=== PATIENT | female | born 1985 | race Caucasian/White ===

== ENCOUNTER → 2017-09-22 10:40 | Outpatient (CLI) | payer OTHER, SELFPAY ==
[2017-09-22 11:35] LABS: Hemoglobin A1c 6.9 % (4.2-6.3)
[2017-09-22 11:41] LABS: Microalbumin,Random Urine 7.1 mg/L (NO RANGE EST.); Microalbumin:Creatinine Ratio 3.4 mg/g CRE (<30 mg/g CRE)
[2017-09-22 11:50] LABS: ALB/GLOB Ratio 0.8 RATIO (0.9-2.4); AST(SGOT) 24 U/L (15-37); Alanine Aminotransfer ALT/SGPT 27 U/L (13-56); Albumin, Serum 3.5 g/dL (3.2-5.0); Alkaline Phosphatase 106 U/L (45-117); Anion Gap 8 (5-15); BUN 12 mg/dL (7-18); BUN/Creat Ratio 12.4 RATIO (10-20); Calcium,Total 9.2 mg/dL (8.5-10.1); Chloride 103 mmol/L (98-107); Creatinine, Serum 0.96 mg/dL (0.55-1.02); EST Glomerular Filtration Rate 71 mL/min (>60); Est Glom Filt Rate - Afr Amer 87 mL/min (>60); Globulin 4.4 g/dL (2.2-4.2); Glucose 117 mg/dL (74-106); Potassium 3.9 mmol/L (3.5-5.1); Protein, Total 7.9 g/dL (6.4-8.2); Sodium Level 139 mmol/L (136-145); Thyroid Stim Hormone (TSH) 1.29 uIU/mL (0.358-3.74)
== END ==
PROVIDERS: Nurse Practitioner; Visit Provider Psychiatry & Neurology Neuromuscular Medicine
DX: E11.9 Type 2 diabetes mellitus without complications (principal)
CPT/HCPCS: 36415; 80053; 82043; 82570; 83036; 84443

== ENCOUNTER → 2018-01-11 18:49 | Outpatient (CLI) | payer OTHER, SELFPAY ==
[2018-01-14 16:11] LABS: HPV Reflexed? NOT INDICATED
== END ==
PROVIDERS: Visit Provider Obstetrics & Gynecology
DX: Z12.4 Encounter for screening for malignant neoplasm of cervix (principal)
CPT/HCPCS: 88175; G0145

== ENCOUNTER → 2018-02-16 10:14 | Outpatient (CLI) | payer OTHER, SELFPAY ==
[2018-02-16 11:22] LABS: Hemoglobin A1c 6.7 % (4.2-6.3)
[2018-02-16 11:31] LABS: ALB/GLOB Ratio 0.8 RATIO (0.9-2.4); AST(SGOT) 20 U/L (15-37); Alanine Aminotransfer ALT/SGPT 24 U/L (13-56); Albumin, Serum 3.2 g/dL (3.2-5.0); Alkaline Phosphatase 94 U/L (45-117); Anion Gap 8 (5-15); BUN 14 mg/dL (7-18); BUN/Creat Ratio 15.6 RATIO (10-20); Calcium,Total 9.1 mg/dL (8.5-10.1); Chloride 106 mmol/L (98-107); Cholesterol 163 mg/dL (200); EST Glomerular Filtration Rate 77 mL/min (>60); Est Glom Filt Rate - Afr Amer 94 mL/min (>60); Globulin 4.1 g/dL (2.2-4.2); Glucose 90 mg/dL (74-106); High Density Lipoprotein 82 mg/dL; Potassium 4.2 mmol/L (3.5-5.1); Protein, Total 7.3 g/dL (6.4-8.2); Sodium Level 142 mmol/L (136-145); Triglycerides 86 mg/dL; Very Low Density Lipoprotein 17 mg/dL (5-40)
== END ==
PROVIDERS: Visit Provider Nurse Practitioner
DX: E10.9 Type 1 diabetes mellitus without complications (principal)
CPT/HCPCS: 36415; 80053; 80061; 83036

== ENCOUNTER → 2018-06-24 07:22 | Outpatient (CLI) | payer OTHER, SELFPAY ==
[2018-05-04 13:56] VITALS: BMI 34.7
[2018-06-24 09:16] LABS: Microalbumin,Random Urine < 5.0 mg/L (NO RANGE EST.)
[2018-06-24 09:29] LABS: ALB/GLOB Ratio 0.8 RATIO (0.9-2.4); AST(SGOT) 21 U/L (15-37); Alanine Aminotransfer ALT/SGPT 24 U/L (13-56); Albumin, Serum 3.3 g/dL (3.2-5.0); Alkaline Phosphatase 98 U/L (45-117); Anion Gap 8 (5-15); BUN 12 mg/dL (7-18); Calcium,Total 8.8 mg/dL (8.5-10.1); Chloride 105 mmol/L (98-107); Cholesterol 160 mg/dL (200); Creatinine, Serum 0.92 mg/dL (0.55-1.02); EST Glomerular Filtration Rate 75 mL/min (>60); Est Glom Filt Rate - Afr Amer 91 mL/min (>60); Free T3 3.3 pg/mL (2.18-3.98); Globulin 4.1 g/dL (2.2-4.2); Glucose 137 mg/dL (74-106); High Density Lipoprotein 76 mg/dL; Potassium 3.4 mmol/L (3.5-5.1); Protein, Total 7.4 g/dL (6.4-8.2); Sodium Level 140 mmol/L (136-145); T4 Free Direct 1.06 ng/dL (0.76-1.46); Thyroid Stim Hormone (TSH) 3.63 uIU/mL (0.358-3.74); Triglycerides 76 mg/dL; Very Low Density Lipoprotein 15 mg/dL (5-40)
[2018-06-24 09:33] LABS: Hemoglobin A1c 7.1 % (4.2-6.3)
--- OUTSIDE RECORDS SUMMARY | 2018-08-28 19:45 | XMS RPT_ITS ---
:1985 Author Organization OHIP Support Name Relationship Address Phone THIAGOVASILIY Unavailable [address] + [place] [address] [employer] Unavailable [address] + [place] [address] VASILIY DAS Unavailable [address] + [place] [address] [employer] Unavailable [address] + [place] [address] VASILIY DAS Unavailable [address] + [place] [address] [employer] Unavailable [address] + [place] [address] VASILIY DAS Unavailable [address] + [place] [address] [employer] Unavailable [address] + [place] [address] VASILIY DAS Unavailable [address] + [place] [address] [employer] Unavailable [address] + [place] [address] VASILIY DAS Unavailable [address] + [place] [address] [employer] Unavailable [address] + [place] [address] VASILIY DAS Unavailable [address] + [place] [address] [employer] Unavailable [address] [place] [address] Care Team Providers Name Role Phone Renee Onofre MACHINIST MECHANIC-C Attending Unavailable Renee Onofre MACHINIST MECHANIC-C Referring Unavailable Primay Care Physicia, No Primary Care Unavailable Renee Onofre MACHINIST MECHANIC-C Attending Unavailable Gume Orozco Referring Unavailable Renee Onofre MACHINIST MECHANIC-C Attending Unavailable Primay Care Physicia, No Referring Unavailable Renee Onofre MACHINIST MECHANIC-C Attending Unavailable [place], Renee Abreu MACHINIST MECHANIC-C Referring Unavailable Primay Care Physicia, No Primary Care Unavailable Tereza Clemens Attending Unavailable Primay Care Physicia, No Primary Care Unavailable KingstonJudson Attending Unavailable Tye Onofreen Referring Unavailable Primay Care Physicia, No Primary Care Unavailable [place], Renee Abreu MACHINIST MECHANIC-C Attending Unavailable Gume Orozco Referring Unavailable Gume Orozco Primary Care Unavailable PROBLEMS PROBLEMS DATE TYPE CONDITION / CODE ATTENDING STATUS SOURCE 05/04/2018 Unknown E10.9 - Type 1 Sarayshawn Renee Abreu Active [place] diabetes mellitus MACHINIST MECHANIC-C [facility] complications / Repository E10.9(ICD-10) 09/22/2017 Unknown E11.9 - Type 2 Judson Onofre Active [place] diabetes mellitus [facility] without Hospital complications / Repository E11.9(ICD-10) PROCEDURES PROCEDURES No Procedure Records FoundRESULTS RESULTS MICROALB:CREAT Collected: 06/24/2018 Status: F [facility]26 AM [facility] REPOSITORY TYPE CODE TESTS RESULT OUT OF RANGE REFERENCE UNITS LAB L501.1200 NO RANGE EST. mg/dL 18.10 Normal UR CREAT LAB L502.0500 NO RANGE EST. mg/L < 5.0 Normal MICROALBUMI N,UR LAB L502.0600 <30 mg/g CRE mg/g CRE Test Normal not performed MALB:CREAT Performed By: #### L502.0250 #### [facility] [address] [place], [place], [id number] COMPREHENSIVE METABOLIC Collected: 06/24/2018 Status: F Source: GARY PROFIL 7:26 AM [facility] REPOSITORY TYPE CODE TESTS RESULT OUT OF RANGE REFERENCE UNITS LAB L501.0100 74-106 mg/dL High GLU 137 Result Comment: Fasting Glucose result greater than or equal to 126 mg/dL suggests DIABETES MELLITUS per A.D.A. criteria. Please note revised GLUCOSE reference range effective 2017. LAB L501.1000 7-18 mg/dL Normal BUN 12 LAB L501.1100 0.55-1.02 mg/dL Normal CREAT,SERUM 0.92 Result Comment: The validity of the calculated GFR AND GFRAA in patients over 70 years has not been determined. Clinical correlation is essential. LAB L501.1110 >60 mL/min Normal EST GFR 75 Result Comment: Non- GFR Calc LAB L501.1115 >60 mL/min Normal EST GFR - AA 91 Result Comment: GFR Calc LAB L501.1300 10-20 RATIO Normal BUN/CRE 13.0 LAB L501.1500 6.4-8.2 g/dL T Normal PROT 7.4 LAB L501.1800 3.2-5.0 g/dL Normal ALB 3.3 LAB L501.1950 2.2-4.2 g/dL Normal GLOB 4.1 LAB L501.2000 0.9-2.4 RATIO Low A/G 0.8 LAB L501.2200 8.5-10.1 mg/dL CA Normal 8.8 LAB L501.4100 15-37 U/L Normal AST 21 LAB L501.4305 45-117 U/L Normal ALK P 98 LAB L501.4405 13-56 U/L Normal ALT 24 LAB L501.4600 0.20-1.00 mg/dL T Normal BILI 0.40 LAB L501.5300 136-145 mmol/L NA Normal 140 LAB L501.5600 3.5-5.1 mmol/L Low K 3.4 LAB L501.5900 98-107 mmol/L CL Normal 105 LAB L501.6100 21.0-32.0 mmol/L Normal CO2 27.0 LAB L501.6200 5-15 Normal GAP 8 Performed By: #### L500.4050, L500.4100, L501.65595, L501.9520, L506.0400 #### [facility] [address] [place], [address] LIPID PROFILE Collected: 06/24/2018 Status: F Source: [place] 7:26 AM [facility] REPOSITORY TYPE CODE TESTS RESULT OUT OF RANGE REFERENCE UNITS LAB L501.4900 200 mg/dL Normal CHOL 160 Result Comment: <200 mg/dL Desirable 200-240 mg/dL Borderline >240 mg/dL High Risk LAB L501.5000 mg/dL Normal TRIG 76 Result Comment: The drugs N-Acetylcysteine and Metamizole may falsely depress this assay. Serum Triglycerides Reference Interval Normal <150 mg/dL Borderline high 150 - 199 mg/dL High 200 - 499 mg/dL Very High > or = 500 mg/dL LAB L501.6400 mg/dL Normal HDL 76 Result Comment: The drugs N-Acetylcysteine and Metamizole may falsely depress this assay. Reference Range HDL <40 mg/dL Low HDL Cholesterol HDL >or= 60 mg/dL High HDL Cholesterol LAB L501.6500 0-130 mg/dL Normal LDL 69 LAB L501.6600 5-40 mg/dL Normal VLDL 15 Performed By: #### L500.4050, L500.4100, L501.21118, L501.9520, L506.0400 #### [facility] [address] [place], [place], [address] FREE T3 Collected: 06/24/2018 Status: F Source: [place] 7:26 AM [facility] REPOSITORY TYPE CODE TESTS RESULT OUT OF RANGE REFERENCE UNITS LAB L501.27106 2.18-3.98 pg/mL Normal FREE T3 3.3 Performed By: #### L500.4050, L500.4100, L501.98285, L501.9520, L506.0400 #### [facility] [address] [place], [address] THYROID STIM HORMONE Collected: 06/24/2018 Status: F Source: [place] ([facility]) 7:26 AM [facility] REPOSITORY TYPE CODE TESTS RESULT OUT OF RANGE REFERENCE UNITS LAB L501.9520 0.358-3.74 uIU/mL Normal TSH 3.63 Performed By: #### L500.4050, L500.4100, L501.31803, L501.9520, L506.0400 #### [facility] [address] [place], [address] T4 FREE DIRECT Collected: 06/24/2018 Status: F Source: [place] 7:26 AM [facility] REPOSITORY TYPE CODE TESTS RESULT OUT OF RANGE REFERENCE UNITS LAB L506.0400 0.76-1.46 ng/dL Normal T4 FREE 1.06 DIRECT Performed By: #### L500.4050, L500.4100, L501.87885, L501.9520, L506.0400 #### [facility] [address] [place], [address] HEMOGLOBIN A1C Collected: 06/24/2018 Status: F Source: [place] 7:26 AM [facility] REPOSITORY TYPE CODE TESTS RESULT OUT OF RANGE REFERENCE UNITS LAB L501.9985 4.2-6.3 % High HGB A1C 7.1 Performed By: #### L501.9985 #### [facility] [address] [place], [address] ENDOCRINOLOGY VISIT Observed: 05/05/2018 Status: F Source: [facility] REPORT 1:16 PM [facility] REPOSITORY [facility] [address] [place] [address] OFFICE VISIT Date of Service: 05/04/18 MR#: [id number] Acct: [id number] Name: VALENCIA DAS Rep #: [id number] : 1985 Provider: Renee Onofre NP Age/Sex: 33/F Location: [facility] [place] Status: Signed HPI History of present illness HPI History of present illness Valencia Das is a 33 year old female who presents for diabetes type 1. Diagnosed at 3 years old.(1987) Continues on insulin pump therapy. Changes infusion site every 3 days. Denies any issues with skin irritation or infection. Reports checking BG consistently. Is wearing CGM Pump is downloaded in office. She denies excessive thirst, increased frequency of urination, chest pain or dyspnea. Follows a diabetic diet, Is compliant with medication and is tolerating without side effects. At time of visit: -Pt denies symptoms of hypertensive emergency (CP,SOB,IRIZARRY, or blurred vision) and hypotension(dizziness or lightheadedness) -Pt denies symptoms of hypoglycemia ( sweaty, confusion, anxiety, tremor, hunger, palpitations) and hyperglycemia ( polydipsia, polyuria) -Pt denies potential medication adverse effect. Hypoglycemia Aware of hypoglycemia: When awake Able to self treat low BG: Yes Frequent low Blood sugar: No Has supply of glucagon: Yes Time of Day Basal Rate 12m 1.35 6am 1.30 10am 1.25 5pm 1.35 I/C am 10 lunch 10 dinner 8.7 ISF 12m 35 6am 25 12n 35 9pm 40 SMBG 4-6 times daily Average 146 Exercise Is working out. Exam Const General: healthy appearing, comfortable Nutritional Appearance: well nourished Orientation: oriented x3 [facility] Head: normal to inspection, normocephalic Ears: hearing grossly normal bilaterally Mouth: oral mucosae normal, moist mucous membranes Teeth and gingiva: dentition normal Eyes General: appearance normal, both eyes and all related structures Eyelids: eyelids normal Conjunctivae: conjunctivae normal Sclera: sclerae normal Pupils: PERRL Resp Effort AND Inspection: normal respiratory effort, able to speak in complete sentences, symmetric chest movement Auscultation: Bilateral: Clear to Auscultation Cardio Rate: regular rate Rhythm: regular rhythm Heart Sounds: S1 normal, S2 normal GI Inspection: normal to inspection Auscultation: normal bowel sounds Palpation: soft Skin General: no rashes or lesions noted Wounds: no wounds Diabetic Foot Pulses: L dorsalis pedis pulse: normal, R dorsalis pedis pulse: normal Monofilament test: Left foot: normal, Right foot: normal Neuro General: oriented x3 Cognition: normal cognition Speech: speech normal Gait: normal gait Extrem General: normal to inspection, normal capillary refill Psych Appearance: well kempt Mental Status: mental status grossly normal Mood: congruent mood Affect: normal affect Speech and Movement: speech and movement normal Attitude: cooperative Thought Process: normal Thought Content: normal Judgment: judgment good Type: type 1, insulin-requiring Glucose control symptoms: Reports high post-meal glucose Weight and fatigue symptoms: Denies snoring Cardiopulmonary symptoms: Denies chest pain at rest, dyspnea on exertion, lightheadedness or myalgias GI symptoms: Denies constipation, diarrhea, nausea/dyspepsia or vomiting Skin and extremity symptoms: Denies tingling/numbness/burning Other symptoms: Denies blurry vision or change in vision Pertinent visit history: Denies recent visit to ER, recent hospital admission or recent 911 calls Intake Vital Signs05/04/18 Height 5 ft 2 in 05/04/18 Weight: 190 lb 4 oz 05/04/18 Body Mass Index (BMI) 34.7 05/04/18 Blood Pressure 118/83 H 05/04/18 Blood Pressure Location Lt popliteal 05/04/18 Blood Pressure Position Sitting Intake Visit Reasons: Diabetes follow-up Proof Load Mechanic Required: No Accompanied by: Self Allergies No Known Allergies Allergy (Unverified 05/04/18 13:53) Medications multivitamin,ib-[id number] tablet 1 tab PO QDAY 05/31/17 [History Confirmed 05/04/18] blood sugar diagnostic strips See Dose Instructions .ROUTE .MEDSUPPLY #20 ea 09/09/17 [History Confirmed 05/04/18] insulin pump syringe 1.8 mL See Dose Instructions .ROUTE .MEDSUPPLY #10 ea 09/09/17 [History Confirmed 05/04/18] transparent dressings 4 X 5 1/2 See Dose Instructions .ROUTE .MEDSUPPLY #10 ea 09/09/17 [History Confirmed 05/04/18] infusion set for insulin pump See Dose Instructions .ROUTE .MEDSUPPLY #1 ea 09/10/17 [History Confirmed 05/04/18] insulin glargine (U- 100) 100 unit/mL subcutaneous solution See Rx Instructions SC QDAY 09/10/17 [History Confirmed 05/04/18] cholecalciferol (vitamin D3) 10,000 unit tablet 10,000 unit PO QDAY 09/22/17 [History Confirmed 05/04/18] drospirenone 3 mg-ethinyl estradiol 0.02 mg tablet 1 tab PO QDAY 09/22/17 [History Confirmed 05/04/18] insulin lispro (U- 100) 100 unit/mL subcutaneous solution See Rx Instructions SC QDAY #30 ml 09/22/17 [Rx Confirmed 05/04/18] mecobalamin (vitamin B12) 5,000 mcg disintegrating tablet mcg PO 09/22/17 [History Confirmed 05/04/18] biotin 1 mg capsule 1 mg PO DAILY 05/04/18 [History Confirmed 05/04/18] glucagon (human recombinant) 1 mg solution for injection 1 mg IM ONCE #1 ea 05/04/18 [Rx Confirmed 05/04/18] lamotrigine 150 mg tablet 150 mg PO BID 05/04/18 [History Confirmed 05/04/18] flash glucose scanning reader See Dose Instructions .ROUTE .MEDSUPPLY #1 ea 05/05/18 [Rx Confirmed 05/05/18] flash glucose sensor kit See Dose Instructions .ROUTE .MEDSUPPLY #1 ea 05/05/18 [Rx Confirmed 05/05/18] Nurse's Note: blood sugars : low : 56 high : 380 [facility] Medical History Back pain (Acute) Chest pain (Acute) History of wisdom tooth extraction (Acute) Neck pain (Acute) Severe headache (Acute) Thyroid disease (Acute) Tiredness (Acute) Type 1 diabetes (Acute) Surgical History History of carpal tunnel release (Acute) Social History Smoking Status: Never smoker alcohol intake: current alcohol intake frequency: a few times a month ROS Const Constitutional: No anorexia, body ache, chills, fatigue, fever(s), frequent falls, decreased energy, malaise, night sweats, weakness, weight change, sleep problems, abnormal sleep pattern, change in appetite, other, headache(s), snoring or excessive sweating Eyes Eyes: No blurry vision, change in vision, double vision, discharge, dry eyes, bulging eyes, floaters, visual disturbances, eye pain, light sensitivity, spots in vision, tunnel vision or other ENT ENT: No abnormal hearing, ear pain, ear discharge, ear pressure, hearing loss, tinnitus, dizziness/vertigo, balance problems, nosebleed/epistaxis, nasal congestion, nasal obstruction, nose pain, sinus pressure, sinus pain, nasal discharge, post nasal drip, headache(s), facial pain, dental pain, dry mouth, bad breath, hoarseness, lip swelling, mouth lesions, mouth pain, sore throat, tongue swelling, throat swelling, other, difficulty swallowing or neck pain Resp Respiratory: No cough, change in phlegm color, chest congestion, excessive phlegm production, hemoptysis, pain on inspiration, shortness of breath, pain with cough, snoring, stridor, wheezing or other Cardio Cardiology: No chest pain at rest, chest pain with exertion, leg pain with exertion, excessive sweating, shortness of breath, dyspnea on exertion, generalized swelling, irregular heart rhythm, lightheadedness, orthopnea, radiating jaw, neck or arm pain, fast heart rate, slow heart rate, palpitations or other Gastro GI: No abdominal pain, belching, bloating, change in bowel habits, change in stool character, coffee ground emesis, constipation, cramping, diarrhea, heartburn, difficulty swallowing, feeling full early, excessive flatus, incontinent of stools, Vomiting blood/hematemesis, blood in stool, loose stools, Black,tarry stools, nausea/dyspepsia, pain with swallowing, vomiting or other Genitourinary-Female: No difficulty urinating, burning urination, painful urination, urinary incontinence, urinary frequency, urinary urgency, urinary hesitancy, urinary retention, blood in urine, Frequent nighttime urination/ nocturia, post void dribbling, suprapubic fullness, side pain, sexual problems, genital lesions, genital itching, hot flashes, abnormal periods, abnormal vaginal bleeding, absent period, painful periods, light periods, heavy periods, difficulty getting , painful intercourse, pelvic pain, vaginal dryness, vaginal odor, Vaginal Itching or other Musc Musculoskeletal: No abnormal walking, joint pain, back pain, deformity, joint swelling, limited range of motion, loss of height, muscle cramps, muscle weakness, decreased muscle mass, body aches, neck pain, numbness, radiating pain into limb, stiffness, tingling or other Skin Skin: No acne, hair loss, change in hair, nail changes, boil, change in skin color, dry skin, redness, excessive hair growth, yellowing of the skin, lesions, itching, rash, skin pain, skin ulcer, sores, skin swelling, wounds or other Breast Breast: No other Neuro Neurology: No frequent falls, weakness, visual disturbances, abnormal hearing, headache(s), abnormal walking, numbness or tingling Psych Psychiatric: No abnormal sleep pattern, No change in appetite Endo Endocrine: No fatigue, other or excessive sweating Aller/Imm Allergy/Immunologic: No lip swelling, tongue swelling, throat swelling, wheezing or itchy eyes Assessment AND Plan 1. Diabetes mellitus type 1, controlled, without complications E10.9 Plan A1c 6.7 Having some higher BG following meals. Is aware of low BG readings. No real issues with low BG readings. Will adjust I/C ratio. I feel she needs to trial higher basal in am on work days such as 6:30 am =1.35 as she does tend to have elevated BG during am on work days I/C ratio am =10 12 =9 5pm= 8.5 Patient Instructions Changes made as noted above Patient will call with any concerns. Labs in 3 months. Orders Orders: Medications New: glucagon (human recombinant) (Glucagon Emerge1 mg IM ONCE 1 ea 0RF use in case of severe ncy Kit (human-recomb)) hypoglycemia Discontinued: glucagon (human recombinant) (Glucagon Emergency Kit (human- recomb)) Disc1 mg IM ONCE ontinued Reason: Duplicate Order Plan Detail Other Medications New: Additional Comments 1. Please schedule follow up in 3 months. 2. Lab work one week before appointment. 3. Discussed importance of regular exercise and recommend starting or continuing a regular exercise program for good health. 4. The patient was encouraged to lose weight for good health 5. The importance of monitoring blood sugar regularly was reviewed. 6. The importance of monitoring the HBA1c level regularly was reviewed. 7. The importance of prper foot care and regularly checking feet to prevent sores and loss of limbs was reviewed. 8. The importance of keeping BP at or below 130/80 to prevent stroke, heart attacks, kidney failure, blindness was reviewed. Spent approximately 30 minutes with patient with over 50% of time spent in discussion and counseling regarding medication adjustment, symptoms and treatment of hypoglycemia, diet adherence, and checking BG before driving. Coding Level of Care Code Off vis,est,level 4 Diagnoses Diabetes mellitus type 1, controlled, without complications E10.9 05/05/18 1316 <Electronically signed by Renee VENCES> Date Renee VENCES Cosigner Signature: Date (if applicable) CC: HEMOGLOBIN A1C Collected: 02/16/2018 Status: F Source: GARY 10:17 AM [facility] REPOSITORY TYPE CODE TESTS RESULT OUT OF RANGE REFERENCE UNITS LAB L501.9985 4.2-6.3 % High HGB A1C 6.7 Performed By: #### L501.9985 #### [facility] [address] [place] [place], [address] COMPREHENSIVE METABOLIC Collected: 02/16/2018 Status: F Source: GARY TORRSE 10:17 AM [facility] REPOSITORY TYPE CODE TESTS RESULT OUT OF RANGE REFERENCE UNITS LAB L501.0100 74-106 mg/dL Normal GLU 90 Result Comment: Please note revised GLUCOSE reference range effective 2017. LAB L501.1000 7-18 mg/dL Normal BUN 14 LAB L501.1100 0.55-1.02 mg/dL Normal CREAT,SERUM 0.90 Result Comment: The validity of the calculated GFR AND GFRAA in patients over 70 years has not been determined. Clinical correlation is essential. LAB L501.1110 >60 mL/min Normal EST GFR 77 Result Comment: Non- GFR Calc LAB L501.1115 >60 mL/min Normal EST GFR - AA 94 Result Comment: GFR Calc LAB L501.1300 10-20 RATIO Normal BUN/CRE 15.6 LAB L501.1500 6.4-8.2 g/dL T Normal PROT 7.3 LAB L501.1800 3.2-5.0 g/dL Normal ALB 3.2 LAB L501.1950 2.2-4.2 g/dL Normal GLOB 4.1 LAB L501.2000 0.9-2.4 RATIO Low A/G 0.8 LAB L501.2200 8.5-10.1 mg/dL CA Normal 9.1 LAB L501.4100 15-37 U/L Normal AST 20 LAB L501.4305 45-117 U/L Normal ALK P 94 LAB L501.4405 13-56 U/L Normal ALT 24 LAB L501.4600 0.20-1.00 mg/dL T Normal BILI 0.40 LAB L501.5300 136-145 mmol/L NA Normal 142 LAB L501.5600 3.5-5.1 mmol/L K Normal 4.2 LAB L501.5900 98-107 mmol/L CL Normal 106 LAB L501.6100 21.0-32.0 mmol/L Normal CO2 28.0 LAB L501.6200 5-15 Normal GAP 8 Performed By: #### L500.4050, L500.4100 #### [facility] [address] [place], [address] LIPID PROFILE Collected: 02/16/2018 Status: F Source: [place] 10:17 AM [facility] REPOSITORY TYPE CODE TESTS RESULT OUT OF RANGE REFERENCE UNITS LAB L501.4900 200 mg/dL Normal CHOL 163 Result Comment: <200 mg/dL Desirable 200-240 mg/dL Borderline >240 mg/dL High Risk LAB L501.5000 mg/dL Normal TRIG 86 Result Comment: The drugs N-Acetylcysteine and Metamizole may falsely depress this assay. Serum Triglycerides Reference Interval Normal <150 mg/dL Borderline high 150 - 199 mg/dL High 200 - 499 mg/dL Very High > or = 500 mg/dL LAB L501.6400 mg/dL Normal HDL 82 Result Comment: The drugs N-Acetylcysteine and Metamizole may falsely depress this assay. Reference Range HDL <40 mg/dL Low HDL Cholesterol HDL >or= 60 mg/dL High HDL Cholesterol LAB L501.6500 0-130 mg/dL Normal LDL 64 LAB L501.6600 5-40 mg/dL Normal VLDL 17 Performed By: #### L500.4050, L500.4100 #### [facility] [address] [place], [address] ENDOCRINOLOGY VISIT Observed: 01/26/2018 Status: F Source: [place] REPORT 9:09 PM [facility] REPOSITORY [facility] [address] [place] [address] OFFICE VISIT Date of Service: 01/26/18 MR#: [id number] Acct: [id number] Name: VALENCIA DAS Rep #: [id number] : 1985 Provider: Renee Onofre NP Age/Sex: 32/F Location: [facility] [place] Status: Signed HPI History of present illness Valencia Das is a 32 year old female who presents for diabetes type 1. Diagnosed at 3 years old.(1987) Continues on insulin pump therapy. Changes infusion site every 3 days. Denies any issues with skin irritation or infection. Reports checking BG consistently. Is wearing CGM Pump is downloaded in office. She denies excessive thirst, increased frequency of urination, chest pain or dyspnea. Follows a diabetic diet, Is compliant with medication and is tolerating without side effects. At time of visit: -Pt denies symptoms of hypertensive emergency (CP,SOB,IRIZARRY, or blurred vision) and hypotension(dizziness or lightheadedness) -Pt denies symptoms of hypoglycemia ( sweaty, confusion, anxiety, tremor, hunger, palpitations) and hyperglycemia ( polydipsia, polyuria) -Pt denies potential medication adverse effect. Hypoglycemia Aware of hypoglycemia: When awake Able to self treat low BG: Yes Frequent low Blood sugar: No Has supply of glucagon: Yes Time of Day Basal Rate 12m 1.35 6am 1.35 10am 1.25 5pm 1.35 I/C am 10 lunch 8.5 9pm 8.8 ISF 12m 35 6am 25 12n 35 9pm 40 SMBG 4-6 times daily Average 155 Exercise Is working out. Wt remains down 11 lbs ROS Const Constitutional: No anorexia, body ache, chills, fatigue, fever(s), frequent falls, decreased energy, malaise, night sweats, weakness, weight change, sleep problems, abnormal sleep pattern, change in appetite, other, headache(s), snoring or excessive sweating Eyes Eyes: No blurry vision, change in vision, double vision, discharge, dry eyes, bulging eyes, floaters, visual disturbances, eye pain, light sensitivity, spots in vision, tunnel vision or other ENT ENT: no abnormal hearing, ear pain, ear discharge, ear pressure, hearing loss, tinnitus, dizziness/vertigo, balance problems, nosebleed/epistaxis, nasal congestion, nasal obstruction, nose pain, sinus pressure, sinus pain, nasal discharge, headache(s), facial pain, dental pain, dry mouth, bad breath, hoarseness, lip swelling, mouth lesions, mouth pain, sore throat, tongue swelling, throat swelling, other, difficulty swallowing or neck pain Resp Respiratory: neg chest congestion, hemoptysis, pain on inspiration, shortness of breath, pain with cough, snoring, stridor, wheezing or other Cardio Cardiology: No chest pain at rest, chest pain with exertion, leg pain with exertion, excessive sweating, shortness of breath, dyspnea on exertion, generalized swelling, irregular heart rhythm, lightheadedness, orthopnea, radiating jaw, neck or arm pain, fast heart rate, slow heart rate, palpitations or other Gastro GI: No abdominal pain, belching, bloating, change in bowel habits, change in stool character, coffee ground emesis, constipation, cramping, diarrhea, heartburn, difficulty swallowing, feeling full early, excessive flatus, incontinent of stools, Vomiting blood/hematemesis, blood in stool, loose stools, Black,tarry stools, nausea/dyspepsia, pain with swallowing, vomiting or other Genitourinary-Female: No difficulty urinating, burning urination, painful urination, urinary incontinence, urinary frequency, urinary urgency, urinary hesitancy, urinary retention, blood in urine, Frequent nighttime urination/ nocturia, post void dribbling, suprapubic fullness, side pain, sexual problems, genital lesions, genital itching, hot flashes, abnormal periods, abnormal vaginal bleeding, absent period, painful periods, light periods, heavy periods, difficulty getting , painful intercourse, pelvic pain, vaginal dryness, vaginal odor, Vaginal Itching or other Musc Musculoskeletal: No abnormal walking, joint pain, back pain, deformity, joint swelling, limited range of motion, loss of height, muscle cramps, muscle weakness, decreased muscle mass, body aches, neck pain, numbness, radiating pain into limb, stiffness, tingling or other Skin Skin: No acne, hair loss, change in hair, nail changes, boil, change in skin color, dry skin, redness, excessive hair growth, yellowing of the skin, lesions, itching, rash, skin pain, skin ulcer, sores, skin swelling, wounds or other Breast Breast: No other Neuro Neurology: No frequent falls, weakness, visual disturbances, abnormal hearing, headache(s), abnormal walking, numbness or tingling Psych Psychiatric: No abnormal sleep pattern, No change in appetite Endo Endocrine: No fatigue, other or excessive sweating Aller/Imm Allergy/Immunologic: No lip swelling, tongue swelling, throat swelling, wheezing or itchy eyes Exam Const General: healthy appearing, comfortable Nutritional Appearance: well nourished Orientation: oriented x3 [facility] Head: normal to inspection, normocephalic Ears: hearing grossly normal bilaterally Mouth: oral mucosae normal, moist mucous membranes Teeth and gingiva: dentition normal Eyes General: appearance normal, both eyes and all related structures Eyelids: eyelids normal Conjunctivae: conjunctivae normal Sclera: sclerae normal Pupils: PERRL Resp Effort AND Inspection: normal respiratory effort, able to speak in complete sentences, symmetric chest movement Auscultation: Bilateral: Clear to Auscultation Cardio Rate: regular rate Rhythm: regular rhythm Heart Sounds: S1 normal, S2 normal GI Inspection: normal to inspection Auscultation: normal bowel sounds Palpation: soft Skin General: no rashes or lesions noted Wounds: no wounds Diabetic Foot Pulses: L dorsalis pedis pulse: normal, R dorsalis pedis pulse: normal Monofilament test: Left foot: normal, Right foot: normal Neuro General: oriented x3 Cognition: normal cognition Speech: speech normal Gait: normal gait Extrem General: normal to inspection, normal capillary refill Psych Appearance: well kempt Mental Status: mental status grossly normal Mood: congruent mood Affect: normal affect Speech and Movement: speech and movement normal Attitude: cooperative Thought Process: normal Thought Content: normal Judgment: judgment good Type: type 1 Weight and fatigue symptoms: Denies weight loss or wakes up feeling tired Cardiopulmonary symptoms: Denies chest pain with activity or dyspnea on exertion Skin and extremity symptoms: Denies recurrent infections, tingling/numbness/burning or foot ulcers Other symptoms: Denies recurrent infections Pertinent visit history: Denies recent visit to ER, recent hospital admission or recent DKA Intake Vital Signs01/26/18 Height 5 ft 2 in 01/26/18 Weight: 180 lb 01/26/18 Body Mass Index (BMI) 32.9 Intake Visit Reasons: Diabetes follow-up Proof Load Mechanic Required: No Accompanied by: Self Is patient in pain?: No Allergies No Known Allergies Allergy (Unverified 01/26/18 15:02) Medications multivitamin,ex-clsm-bwhznwdd tablet 1 tab PO QDAY 05/31/17 [History Confirmed 01/26/18] blood sugar diagnostic strips See Dose Instructions .ROUTE .MEDSUPPLY #20 ea 09/09/17 [History Confirmed 01/26/18] insulin pump syringe 1.8 mL See Dose Instructions .ROUTE .MEDSUPPLY #10 ea 09/09/17 [History Confirmed 01/26/18] transparent dressings 4 X 5 1/2 See Dose Instructions .ROUTE .MEDSUPPLY #10 ea 09/09/17 [History Confirmed 01/26/18] blood sugar diagnostic strips See Dose Instructions .ROUTE .MEDSUPPLY #20 ea 09/10/17 [History Confirmed 01/26/18] glucagon (human recombinant) 1 mg injection kit 1 mg IM ONCE 09/10/17 [History Confirmed 01/26/18] infusion set for insulin pump See Dose Instructions .ROUTE .MEDSUPPLY #1 ea 09/10/17 [History Confirmed 01/26/18] insulin glargine (U-100) 100 unit/mL subcutaneous solution See Label Instructions SC QDAY 09/10/17 [History Confirmed 01/26/18] cholecalciferol (vitamin D3) 10,000 unit tablet 10,000 unit PO QDAY 09/22/17 [History Confirmed 01/26/18] drospirenone-ethinyl estradiol 3 mg-0.02 mg (24) tablet 1 tab PO QDAY 09/22/17 [History Confirmed 01/26/18] insulin lispro (U-100) 100 unit/mL subcutaneous solution See Label Instructions SC QDAY #30 ml 09/22/17 [Rx Confirmed 01/26/18] lamotrigine 200 mg tablet 300 mg PO QDAY tab 09/22/17 [History Confirmed 01/26/18] mecobalamin (vitamin B12) 5,000 mcg disintegrating tablet mcg PO 09/22/17 [History Confirmed 01/26/18] Is last menstrual period known: No Post menopausal: No Patient : No Nurse's Note: blood sugars : low : high : PFSH Medical History Back pain (Acute) Chest pain (Acute) History of carpal tunnel release (Acute) Neck pain (Acute) Severe headache (Acute) Thyroid disease (Acute) Tiredness (Acute) Type 1 diabetes (Acute) Surgical History History of wisdom tooth extraction (Acute) Social History Smoking Status: Never smoker alcohol intake: current alcohol intake frequency: a few times a month ROS Cardio Cardiology: No dyspnea on exertion Assessment AND Plan 1. Diabetes mellitus type 1, controlled, without complications E10.9 Plan Needs basal adjustment with new ob 6:30am 1.30 12n 1.25 Monitor Bg carefully Labs as ordered. No further change. BP in range Orders Orders: Plan Detail Additional Comments 1. Please schedule follow up in 3 months. 2. Lab work one week before appointment. 3. Discussed importance of regular exercise and recommend starting or continuing a regular exercise program for good health. 4. The patient was encouraged to lose weight for good health 5. The importance of monitoring blood sugar regularly was reviewed. 6. The importance of monitoring the HBA1c level regularly was reviewed. 7. The importance of prper foot care and regularly checking feet to prevent sores and loss of limbs was reviewed. 8. The importance of keeping BP at or below 130/80 to prevent stroke, heart attacks, kidney failure, blindness was reviewed. Spent approximately 30 minutes with patient with over 50% of time spent in discussion and counseling regarding medication adjustment, symptoms and treatment of hypoglycemia, diet adherence, and checking BG before driving. Coding Level of Care Code Off vis,est,level 3 Diagnoses Diabetes mellitus type 1, controlled, without complications E10.9 01/26/182108 <Electronically signed by Renee VENCES> Date Renee VENCES Cosigner Signature: Date (if applicable) CC: PAP I-G W/RFX HRHPV Collected: 01/11/2018 Status: F Source: GARY 3:30 PM [facility] REPOSITORY Order Comment: CYTOLOGY INFORMATION: - CLINICAL INFORMATION: - DATE LMP/MENOPAUSE: 2015 LMP - COLLECTION VIAL: Thin Prep Vial - TRANSLATOR/INTERPRETER SOURCE: CERVICAL/ENDOCERVICAL - COLLECTION TECHNIQUE: BRUSH/SPATULA Specimen Comment: [id number] Specimen Comment: No. of containers..01 ThinPrep Vial TYPE CODE TESTS RESULT OUT OF RANGE REFERENCE UNITS LAB L7400.0800 . Normal DIAGN Comment Result Comment: NEGATIVE FOR INTRAEPITHELIAL LESION AND MALIGNANCY. LAB L7400.0900 . Normal ADEQ Comment Result Comment: Satisfactory for evaluation. Endocervical and/or squamous metaplastic cells (endocervical component) are present. LAB L7400.1400 . Normal PERFORM Comment Result Comment: Tommy Das, Final Inspector Balance Wheel (ASCP) LAB L7400.2575 . Normal TEST METHOD Comment Result Comment: This liquid based ThinPrep(R) pap test was screened with the use of an image guided system. LAB L7400.2600 . Normal . COMM LAB L7400.2700 . Normal PAPSMR Comment Result Comment: The Pap smear is a screening test designed to aid in the detection of premalignant and malignant conditions of the uterine cervix. It is not a diagnostic procedure and should not be used as the sole means of detecting cervical cancer. Both false-positive and false-negative reports do occur. LAB L7400.2800 . Normal HPV RFLX Comment Result Comment: The HPV DNA reflex criteria were not met with this specimen result therefore, no HPV testing was performed. Performed at: [facility] [employer] [id number] Unit Control Worker: Dariana Hobson MD, Phone: [phone] Performed By: #### L7400.0350 #### [facility] (refer to report for specific site) refer to report for address and phone number ENDOCRINOLOGY VISIT Observed: 09/22/2017 Status: F Source: [place] REPORT 3:34 PM [facility] REPOSITORY [facility] [address] [place] [address]. [address] [place] [address] OFFICE VISIT Date of Service: 09/22/17 MR#: [id number] Acct: [id number] Name: VALENCIA DAS Rep #: [id number] : 1985 Provider: Renee Onofre NP Age/Sex: 32/F Location: [facility] [place] Status: Signed HPI History of present illness Valencia Das is a 32 year old female who presents for diabetes type 1. Diagnosed at 3 years old.(1987) Continues on insulin pump therapy. Changes infusion site every 3 days. Denies any issues with skin irritation or infection. Reports checking BG consistently. Is wearing CGM Pump is downloaded in office. She denies excessive thirst, increased frequency of urination, chest pain or dyspnea. Follows a diabetic diet, Is compliant with medication and is tolerating without side effects. At time of visit: -Pt denies symptoms of hypertensive emergency (CP,SOB,IRIZARRY, or blurred vision) and hypotension(dizziness or lightheadedness) -Pt denies symptoms of hypoglycemia ( sweaty, confusion, anxiety, tremor, hunger, palpitations) and hyperglycemia ( polydipsia, polyuria) -Pt denies potential medication adverse effect. Hypoglycemia Aware of hypoglycemia: When awake Able to self treat low BG: Yes Frequent low Blood sugar: No Has supply of glucagon: Yes Time of Day Basal Rate 12m 1.35 10am 1.25 5pm 1.35 I/C am 10 lunch 8.5 9pm 8.8 ISF 12m 35 6am 25 12n 35 9pm 40 SMBG 4-6 times daily Average 140 Exercise Is working out. Lost 14 lbs. Type: type 1 Glucose control symptoms: Reports high post-meal glucose and nocturnal hypoglycemia Weight and fatigue symptoms: Reports weight loss; denies snoring Cardiopulmonary symptoms: Denies chest pain at rest, dyspnea on exertion, lightheadedness or myalgias GI symptoms: Denies constipation, diarrhea, nausea/dyspepsia or vomiting Other symptoms: Denies blurry vision or change in vision Self monitoring: Yes Dietary compliance: Diabetes: good Diabetes education in past year: Yes Glucose testing: demonstrates correct use of meter, understands testing schedule Sick day education - understands ketone testing: Yes Physical activity: regular Exam Const General: healthy appearing, comfortable Nutritional Appearance: well nourished Orientation: oriented x3 HENMT Head: normal to inspection, normocephalic Ears: hearing grossly normal bilaterally Mouth: oral mucosae normal, moist mucous membranes Teeth and gingiva: dentition normal Eyes General: appearance normal, both eyes and all related structures Eyelids: eyelids normal Conjunctivae: conjunctivae normal Sclera: sclerae normal Pupils: PERRL Resp Effort AND Inspection: normal respiratory effort, able to speak in complete sentences, symmetric chest movement Auscultation: Bilateral: Clear to Auscultation Cardio Rate: regular rate Rhythm: regular rhythm Heart Sounds: S1 normal, S2 normal GI Inspection: normal to inspection Auscultation: normal bowel sounds Palpation: soft Skin General: no rashes or lesions noted Wounds: no wounds Diabetic Foot Pulses: L dorsalis pedis pulse: normal, R dorsalis pedis pulse: normal Monofilament test: Left foot: normal, Right foot: normal Neuro General: oriented x3 Cognition: normal cognition Speech: speech normal Gait: normal gait Extrem General: normal to inspection, normal capillary refill Psych Appearance: well kempt Mental Status: mental status grossly normal Mood: congruent mood Affect: normal affect Speech and Movement: speech and movement normal Attitude: cooperative Thought Process: normal Thought Content: normal Judgment: judgment good Intake Vital Signs09/22/17 Height 5 ft 3 in 09/22/17 Weight: 181 lb 09/22/17 Body Mass Index (BMI) 32.1 09/22/17 Blood Pressure 129/78 09/22/17 Blood Pressure Location Lt popliteal 09/22/17 Blood Pressure Position Sitting Intake Visit Reasons: Diabetes follow-up Proof Load Mechanic Required: No Accompanied by: Self Is patient in pain?: No Allergies No Known Allergies Allergy (Unverified 09/22/17 09:42) Medications multivitamin,gk-snhk-bjkvpehr tablet 1 tab PO QDAY 05/31/17 [History Confirmed 09/22/17] blood sugar diagnostic strips See Dose Instructions .ROUTE .MEDSUPPLY #20 ea 09/09/17 [History Confirmed 09/22/17] insulin pump syringe 1.8 mL See Dose Instructions .ROUTE .MEDSUPPLY #10 ea 09/09/17 [History Confirmed 09/22/17] transparent dressings 4 X 5 1/2 See Dose Instructions .ROUTE .MEDSUPPLY #10 ea 09/09/17 [History Confirmed 09/22/17] blood sugar diagnostic strips See Dose Instructions .ROUTE .MEDSUPPLY #20 ea 09/10/17 [History Confirmed 09/22/17] glucagon (human recombinant) 1 mg injection kit 1 mg IM ONCE 09/10/17 [History Confirmed 09/22/17] infusion set for insulin pump See Dose Instructions .ROUTE .MEDSUPPLY #1 ea 09/10/17 [History Confirmed 09/22/17] insulin glargine (U-100) 100 unit/mL subcutaneous solution See Label Instructions SC QDAY 09/10/17 [History Confirmed 09/22/17] cholecalciferol (vitamin D3) 10,000 unit tablet 10,000 unit PO QDAY 09/22/17 [History Confirmed 09/22/17] drospirenone-ethinyl estradiol 3 mg-0.02 mg (24) tablet 1 tab PO QDAY 09/22/17 [History Confirmed 09/22/17] insulin lispro (U-100) 100 unit/mL subcutaneous solution See Label Instructions SC QDAY #30 ml 09/22/17 [Rx Confirmed 09/22/17] lamotrigine 200 mg tablet 300 mg PO QDAY tab 09/22/17 [History Confirmed 09/22/17] mecobalamin (vitamin B12) 5,000 mcg disintegrating tablet mcg PO 09/22/17 [History Confirmed 09/22/17] Is last menstrual period known: No Post menopausal: No Patient : No Nurse's Note: blood sugars : low : 38 high : 414 checks BG 4 x qd Paradigm 551 pump PFSH Medical History Back pain (Acute) Chest pain (Acute) History of carpal tunnel release (Acute) Neck pain (Acute) Severe headache (Acute) Thyroid disease (Acute) Tiredness (Acute) Type 1 diabetes (Acute) Surgical History History of wisdom tooth extraction (Acute) Social History Smoking Status: Never smoker alcohol intake: current alcohol intake frequency: a few times a month ROS Const Constitutional: No anorexia, body ache, chills, fatigue, fever(s), frequent falls, decreased energy, malaise, night sweats, weakness, weight change, sleep problems, abnormal sleep pattern, change in appetite, other, headache(s), snoring or excessive sweating Eyes Eyes: No blurry vision, change in vision, double vision, discharge, dry eyes, bulging eyes, floaters, visual disturbances, eye pain, light sensitivity, spots in vision, tunnel vision or other ENT ENT: Positive for post nasal drip; no abnormal hearing, ear pain, ear discharge, ear pressure, hearing loss, tinnitus, dizziness/vertigo, balance problems, nosebleed/epistaxis, nasal congestion, nasal obstruction, nose pain, sinus pressure, sinus pain, nasal discharge, headache(s), facial pain, dental pain, dry mouth, bad breath, hoarseness, lip swelling, mouth lesions, mouth pain, sore throat, tongue swelling, throat swelling, other, difficulty swallowing or neck pain Resp Respiratory: Positive for cough and excessive phlegm production; no change in phlegm color, chest congestion, hemoptysis, pain on inspiration, shortness of breath, pain with cough, snoring, stridor, wheezing or other Cardio Cardiology: No chest pain at rest, chest pain with exertion, leg pain with exertion, excessive sweating, shortness of breath, dyspnea on exertion, generalized swelling, irregular heart rhythm, lightheadedness, orthopnea, radiating jaw, neck or arm pain, fast heart rate, slow heart rate, palpitations or other Gastro GI: No abdominal pain, belching, bloating, change in bowel habits, change in stool character, coffee ground emesis, constipation, cramping, diarrhea, heartburn, difficulty swallowing, feeling full early, excessive flatus, incontinent of stools, Vomiting blood/hematemesis, blood in stool, loose stools, Black,tarry stools, nausea/dyspepsia, pain with swallowing, vomiting or other Genitourinary-Female: No difficulty urinating, burning urination, painful urination, urinary incontinence, urinary frequency, urinary urgency, urinary hesitancy, urinary retention, blood in urine, Frequent nighttime urination/ nocturia, post void dribbling, suprapubic fullness, side pain, sexual problems, genital lesions, genital itching, hot flashes, abnormal periods, abnormal vaginal bleeding, absent period, painful periods, light periods, heavy periods, difficulty getting , painful intercourse, pelvic pain, vaginal dryness, vaginal odor, Vaginal Itching or other Musc Musculoskeletal: No abnormal walking, joint pain, back pain, deformity, joint swelling, limited range of motion, loss of height, muscle cramps, muscle weakness, decreased muscle mass, body aches, neck pain, numbness, radiating pain into limb, stiffness, tingling or other Skin Skin: No acne, hair loss, change in hair, nail changes, boil, change in skin color, dry skin, redness, excessive hair growth, yellowing of the skin, lesions, itching, rash, skin pain, skin ulcer, sores, skin swelling, wounds or other Breast Breast: No other Neuro Neurology: No frequent falls, weakness, visual disturbances, abnormal hearing, headache(s), abnormal walking, numbness or tingling Psych Psychiatric: No abnormal sleep pattern, No change in appetite Endo Endocrine: No fatigue, other or excessive sweating Aller/Imm Allergy/Immunologic: No lip swelling, tongue swelling, throat swelling, wheezing or itchy eyes Assessment AND Plan 1. Diabetes mellitus type 1, controlled, without complications E10.9 Plan Reduce evening meal coverage to I/C of 8.8 Change correction sensitivity to 55 near bedtime to avoid overcorrecting Lab today Medications New: Plan Detail Other Orders Orders: Additional Comments 1. Please schedule follow up in 3 months. 2. Lab work one week before appointment. 3. Discussed importance of regular exercise and recommend starting or continuing a regular exercise program for good health. 4. The patient was encouraged to lose weight for good health 5. The importance of monitoring blood sugar regularly was reviewed. 6. The importance of monitoring the HBA1c level regularly was reviewed. 7. The importance of prper foot care and regularly checking feet to prevent sores and loss of limbs was reviewed. 8. The importance of keeping BP at or below 130/80 to prevent stroke, heart attacks, kidney failure, blindness was reviewed. Spent approximately 30 minutes with patient with over 50% of time spent in discussion and counseling regarding medication adjustment, symptoms and treatment of hypoglycemia, diet adherence, and checking BG before driving. Coding Level of Care Code Off vis,est,level 4 Diagnoses Diabetes mellitus type 1, controlled, without complications E10.9 Time Spent (min) 30 09/22/17 1534 <Electronically signed by Renee VENCES> Date Renee VENCES Cosigner Signature: Date (if applicable) CC: HEMOGLOBIN A1C Collected: 09/22/2017 Status: F Source: GARY 10:46 AM [facility] REPOSITORY TYPE CODE TESTS RESULT OUT OF RANGE REFERENCE UNITS LAB L501.9985 4.2-6.3 % High HGB A1C 6.9 Performed By: #### L501.9985 #### [facility] [place], [address] MICROALB:CREAT Collected: 09/22/2017 Status: F Source: GARY RATIO,RANDOM UR 10:46 AM [facility] REPOSITORY TYPE CODE TESTS RESULT OUT OF RANGE REFERENCE UNITS LAB L501.1200 NO RANGE EST. mg/dL Normal UR CREAT 208.00 LAB L502.0500 NO RANGE EST. mg/L Normal 7.1 MICROALBUMIN ,UR LAB L502.0600 <30 mg/g CRE mg/g CRE Normal 3.4 MALB:CREAT Performed By: #### L502.0250 #### [facility] [address] [place], [address] COMPREHENSIVE METABOLIC Collected: 09/22/2017 Status: F Source: GARY PROFIL 10:46 AM [facility] REPOSITORY TYPE CODE TESTS RESULT OUT OF RANGE REFERENCE UNITS LAB L501.0100 74-106 mg/dL High GLU 117 Result Comment: Fasting Glucose result from 100 to 125 mg/dL suggests IMPAIRED HOMEOSTASIS per A.D.A. criteria. Please note revised GLUCOSE reference range effective 2017. LAB L501.1000 7-18 mg/dL Normal BUN 12 LAB L501.1100 0.55-1.02 mg/dL Normal CREAT,SERUM 0.96 Result Comment: The validity of the calculated GFR AND GFRAA in patients over 70 years has not been determined. Clinical correlation is essential. LAB L501.1110 >60 mL/min Normal EST GFR 71 Result Comment: Non- GFR Calc LAB L501.1115 >60 mL/min Normal EST GFR - AA 87 Result Comment: GFR Calc LAB L501.1300 10-20 RATIO Normal BUN/CRE 12.4 LAB L501.1500 6.4-8.2 g/dL T Normal PROT 7.9 LAB L501.1800 3.2-5.0 g/dL Normal ALB 3.5 LAB L501.1950 2.2-4.2 g/dL High GLOB 4.4 LAB L501.2000 0.9-2.4 RATIO Low A/G 0.8 LAB L501.2200 8.5-10.1 mg/dL CA Normal 9.2 LAB L501.4100 15-37 U/L Normal AST 24 LAB L501.4305 45-117 U/L Normal ALK P 106 LAB L501.4405 13-56 U/L Normal ALT 27 LAB L501.4600 0.20-1.00 mg/dL T Normal BILI 0.30 LAB L501.5300 136-145 mmol/L NA Normal 139 LAB L501.5600 3.5-5.1 mmol/L K Normal 3.9 LAB L501.5900 98-107 mmol/L CL Normal 103 LAB L501.6100 21.0-32.0 mmol/L Normal CO2 28.0 LAB L501.6200 5-15 Normal GAP 8 Performed By: #### L500.4050, L501.9520 #### [facility] [address] [place], [address] THYROID STIM HORMONE Collected: 09/22/2017 Status: F Source: GARY (TSH) 10:46 AM [facility] REPOSITORY TYPE CODE TESTS RESULT OUT OF RANGE REFERENCE UNITS LAB L501.9520 0.358-3.74 uIU/mL Normal TSH 1.29 Performed By: #### L500.4050, L501.9520 #### [facility] [address] [place], [address] ALLERGIES ALLERGIES DATE TYPE / CODE NAME / CODE REACTION SEVERITY SOURCE 05/04/2018 Drug No Known Unknown [facility] Allergy/4160 Allergies/F00 [facility] [address](SNOMED [id number](RXNOR Repository CT) M) ENCOUNTERS ENCOUNTERS ADMIT/DISCHARGE ACCOUNT ADMITTING ENCOUNTER LOCATION SOURCE NUMBER CLASS 06/24/2018 [id number] Ambulatory [place] 4 [facility] ing:LAB Repository 05/04/2018/ [id number] Ambulatory BMS[facility]:B [place] 8 0 [facility] Repository 02/16/2018 [id number] Ambulatory [place] 9 [facility] ing:LAB Repository 01/26/2018/ [id number] Ambulatory BMSBuilding:B [place] 8 0 [facility] Repository 01/11/2018 [id number] Ambulatory [place] 1 [facility] ing:LABSPEC Repository 09/22/2017 [id number] Ambulatory [place] 1 [facility] ing:LAB Repository 09/22/2017/ [id number] Ambulatory BMSBuilding:B [place] 8 1 [facility] Repository PAYERS PAYERS ENCOUNTER GUARANTOR PAYER SUBSCRIBER SOURCE 06/24/2018 VALENCIA [id number] Insurance:MEDICAL MILLERDOB[facility] [id number] Number: Repository [address]Osa: 330 [id number] (HP) Date:[id number] [address] [address]PH: 06/24/2018 Secondary NOT GIVENUNK [place] Insurance:SELF PAY [facility] Number: Effective Repository Date:2018-06-24 05/04/2018 VALENCIA [id number] Insurance:MEDICAL MillerDOB: [facility] [id number]: Repository [id number]: 330 [id number] [phone] () Date:[id number] [address]SF: 05/04/2018 Secondary NOT GIVENUNK [place] Insurance:SELF PAY [facility] Number: Effective Repository Date:2018-05-04 02/16/2018 VALENCIA [id number] Insurance:MEDICAL MillerDOB: [facility] [id number] Number: Repository [id number]: 330 [id number] [phone] Date:[id number] [address]XZ: 02/16/2018 Secondary NOT GIVENUNK [place] Insurance:SELF PAY [facility] Number: Effective Repository Date:2018-02-16 01/26/2018 VALENCIA [id number] Insurance:MEDICAL MillerDOB: [facility] [id number] Number: Repository [id number]: 330 [id number] [phone] (HP) Date:5325-64-56PD [address] [address]UC: 01/26/2018 Secondary NOT GIVENUNK [place] Insurance:SELF PAY [facility] Number: Effective Repository Date:2018-01-26 01/11/2018 VALENCIA [place] [id number] Insurance:MEDICAL MillerDOB: [facility] [id number] Number: Repository [id number]: 330 [id number] [phone] (HP) Date:4022-51-15TY [address] [place] [address]UB: 01/11/2018 Secondary NOT GIVENUNK [place] Insurance:SELF PAY [facility] Number: Effective Repository Date:2018-01-11 09/22/2017 VALENCIA [place] [id number] Insurance:MEDICAL MillerDOB: [facility] [id number] Number: Repository [id number]: 330 [id number] [phone] (HP) Date:7404-57-02GU [address] [address]KX: 09/22/2017 Secondary NOT GIVENUNK [place] Insurance:SELF PAY [facility] Number: Effective Repository Date:2017-09-22 09/22/2017 VALENCIA [place] Primary [place] [id number] Insurance:MEDICAL MillerDOB: [facility] [id number] Number: Repository [id number]: 330 [id number] [phone] (HP) Date:0108-88-71FH [address] [address]KU: 09/22/2017 Secondary NOT GIVENUNK [place] Insurance:SELF PAY [facility]: Effective Repository Date:2017-09-22
== END ==
PROVIDERS: Referring Provider Nurse Practitioner; Visit Provider Nurse Practitioner
DX: E10.9 Type 1 diabetes mellitus without complications (principal)
CPT/HCPCS: 36415; 80053; 80061; 82043; 82570; 83036; 84439; 84443; 84481

== ENCOUNTER → 2018-08-17 13:54 | Outpatient (CLI) | payer OTHER, SELFPAY ==
[2018-08-10 14:29] VITALS: BMI 34.7
--- NOTE | 2018-08-17 13:56 | US_ITS ---
STUDY: THYROID ULTRASOUND REASON FOR EXAM: Female, 33 years old. Nodules TECHNIQUE: Ultrasound evaluation of the thyroid was performed with real-time and static bass-scale imaging. COMPARISON: None. FINDINGS: RIGHT LOBE: The right lobe of the thyroid gland measures 4.8 x 1.9 x 1.3 cm. There is a homogeneous echotexture. Stable round isoechoic nodule in the central lobe measuring 11 x 9 x 9 mm. No echogenic foci. Peripheral vascularity is present. LEFT LOBE: The left lobe of the thyroid gland measures 4.5 x 1.8 x 1.2 cm. There is a homogeneous echotexture. Stable inferior thyroid nodule, ovoid well-defined, 7 x 6 x 4 mm without echogenic foci with minimal vascularity. ISTHMUS: The isthmus measures 5 mm . Stable hypoechoic well-defined nodule in the left side of the isthmus measuring 8 x 7 x 4 mm. No suspicious secondary features. US/Thyroid IMPRESSION: Stable thyroid nodules. Electronically Signed: Camacho Olguin MD at 15:21 EDT Tel , Service support ,
== END ==
PROVIDERS: Family Provider Nurse Practitioner Family; PCP Nurse Practitioner Family; Referring Provider Nurse Practitioner; Visit Provider Nurse Practitioner
DX: E10.9 Type 1 diabetes mellitus without complications (principal)
CPT/HCPCS: 76536

== ENCOUNTER → 2019-10-25 12:49 | Outpatient (CLI) | payer OTHER, SELFPAY ==
[2018-08-10 14:29] VITALS: BMI 34.7
[2019-10-25 15:06] LABS: ALB/GLOB Ratio 0.7 RATIO (0.9-2.4); AST(SGOT) 16 U/L (15-37); Alanine Aminotransfer ALT/SGPT 16 U/L (13-56); Albumin, Serum 3.1 g/dL (3.2-5.0); Alkaline Phosphatase 132 U/L (45-117); Anion Gap 6 (5-15); BUN 8 mg/dL (7-18); Calcium,Total 8.9 mg/dL (8.5-10.1); Chloride 104 mmol/L (98-107); Cholesterol 124 mg/dL (200); Creatinine, Serum 0.89 mg/dL (0.55-1.02); EST Glomerular Filtration Rate 78 mL/min (>60); Est Glom Filt Rate - Afr Amer 94 mL/min (>60); Globulin 4.2 g/dL (2.2-4.2); Glucose 126 mg/dL (74-106); High Density Lipoprotein 75 mg/dL; Potassium 4.1 mmol/L (3.5-5.1); Protein, Total 7.3 g/dL (6.4-8.2); Sodium Level 137 mmol/L (136-145); T4 Free Direct 0.98 ng/dL (0.76-1.46); Thyroid Stim Hormone (TSH) 2.26 uIU/mL (0.358-3.74); Triglycerides 105 mg/dL; Very Low Density Lipoprotein 21 mg/dL (5-40)
[2019-10-25 15:08] LABS: Hemoglobin A1c 6.5 % (3.8-5.6)
== END ==
PROVIDERS: PCP Nurse Practitioner Family; Referring Provider Nurse Practitioner; Visit Provider Nurse Practitioner
DX: E10.9 Type 1 diabetes mellitus without complications (principal); E03.9 Hypothyroidism, unspecified
CPT/HCPCS: 36415; 80053; 80061; 83036; 84439; 84443

== ENCOUNTER → 2020-01-24 10:13 | Outpatient (CLI) | payer OTHER, SELFPAY ==
[2019-10-31 21:01] VITALS: BMI 34.7
--- NOTE | 2020-01-24 10:28 | EKG12_ITS ---
Test Reason : [employer] Blood Pressure : / mmHG Vent. Rate : 113 BPM Atrial Rate : 113 BPM P-R Int : 168 ms QRS Dur : 082 ms QT Int : 326 ms P-R-T Axes : 030 024 027 degrees QTc Int : 447 ms Sinus tachycardia Otherwise normal ECG Confirmed by ROAYL VILLAR ([id number]), editor news NORA ALEXIS ([id number]) on 01/30/2020 9:46:21 AM Referred By: STIVEN RAYGOZA Confirmed By:ROYAL VILLAR
[2020-01-24 10:40] LABS: Hematocrit 43.1 % (37-47); Hemoglobin 14.6 g/dL (12.0-15.0); Mean Corp Hgb Conc 33.9 g/dL (32-36); Mean Corpuscular Hgb 29.1 pg (27.0-32.0); Mean Platelet Vol. 8.9 fl (6.2-12.0); Platelet Count 276 K/mm3 (150-450); RBC Distribution Width CV 11.3 % (11.6-14.6); RBC Distribution Width SD 34.5 fl (35.1-43.9); Red Blood Count 5.01 M/mm3 (4.2-5.4); White Blood Count 6.8 K/mm3 (4.4-11.0)
[2020-01-24 11:04] LABS: Hemoglobin A1c 6.3 % (3.8-5.6)
[2020-01-24 11:19] LABS: ALB/GLOB Ratio 0.7 RATIO (0.9-2.4); AST(SGOT) 19 U/L (15-37); Alanine Aminotransfer ALT/SGPT 20 U/L (13-56); Albumin, Serum 2.9 g/dL (3.2-5.0); Alkaline Phosphatase 109 U/L (45-117); Anion Gap 4 (5-15); BUN 11 mg/dL (7-18); BUN/Creat Ratio 13.8 RATIO (10-20); Calcium,Total 8.7 mg/dL (8.5-10.1); Chloride 104 mmol/L (98-107); Cholesterol 166 mg/dL (200); EST Glomerular Filtration Rate 88 mL/min (>60); Est Glom Filt Rate - Afr Amer 106 mL/min (>60); Globulin 4.4 g/dL (2.2-4.2); Glucose 155 mg/dL (74-106); High Density Lipoprotein 70 mg/dL; Protein, Total 7.3 g/dL (6.4-8.2); Sodium Level 136 mmol/L (136-145); Thyroid Stim Hormone (TSH) < 0.01 uIU/mL (0.358-3.74); Triglycerides 117 mg/dL; Very Low Density Lipoprotein 23 mg/dL (5-40)
== END ==
PROVIDERS: PCP Nurse Practitioner Family
DX: Z79.899 Other long term (current) drug therapy (principal)
CPT/HCPCS: 36415; 80053; 80061; 83036; 84443; 85027; 93005

== ENCOUNTER → 2021-01-24 13:48 | Outpatient (CLI) | payer BC, SELFPAY ==
[2021-01-24 15:48] LABS: Microalbumin,Random Urine < 5.0 mg/L (NO RANGE EST.)
[2021-01-24 16:02] LABS: ALB/GLOB Ratio 0.7 RATIO (0.9-2.4); AST(SGOT) 18 U/L (15-37); Alanine Aminotransfer ALT/SGPT 24 U/L (13-56); Albumin, Serum 3.1 g/dL (3.2-5.0); Alkaline Phosphatase 118 U/L (45-117); Anion Gap 7 (5-15); BUN 9 mg/dL (7-18); BUN/Creat Ratio 9.5 RATIO (10-20); Chloride 106 mmol/L (98-107); Cholesterol 162 mg/dL (200); Creatinine, Serum 0.94 mg/dL (0.55-1.02); EST Glomerular Filtration Rate 72 mL/min (>60); Est Glom Filt Rate - Afr Amer 87 mL/min (>60); Globulin 4.6 g/dL (2.2-4.2); Glucose 159 mg/dL (74-106); High Density Lipoprotein 76 mg/dL; Potassium 3.8 mmol/L (3.5-5.1); Protein, Total 7.7 g/dL (6.4-8.2); Sodium Level 140 mmol/L (136-145); T4 Free Direct 1.22 ng/dL (0.76-1.46); Thyroid Stim Hormone (TSH) 0.73 uIU/mL (0.358-3.74); Triglycerides 166 mg/dL; Very Low Density Lipoprotein 33 mg/dL (5-40)
== END ==
PROVIDERS: PCP Nurse Practitioner Family; Referring Provider Internal Medicine Endocrinology, Diabetes & Metabolism; Visit Provider Internal Medicine Endocrinology, Diabetes & Metabolism
DX: E10.9 Type 1 diabetes mellitus without complications (principal); E03.8 Other specified hypothyroidism; E06.3 Autoimmune thyroiditis; E66.09 Other obesity due to excess calories; Z68.33 Body mass index [BMI] 33.0-33.9, adult; Z96.41 Presence of insulin pump (external) (internal)
CPT/HCPCS: 36415; 80053; 80061; 82043; 82570; 84439; 84443

== ENCOUNTER → 2021-04-01 | Outpatient (CLI) | payer BC, SELFPAY ==
[2021-04-04 08:59] LABS: HPV APTIMA, High Risk Negative (Negative)
== END | disposition home or self-care (01) ==
LOC: LABSPEC 10:55
PROVIDERS: PCP Nurse Practitioner Family; Visit Provider Student in an Organized Health Care Education/Training Program
DX: Z12.4 Encounter for screening for malignant neoplasm of cervix (principal)
CPT/HCPCS: 87624; 88175; G0145

== ENCOUNTER → 2021-05-23 14:27 | Outpatient (CLI) | payer BC, SELFPAY ==
[2021-05-23 15:47] LABS: T4 Free Direct 1.35 ng/dL (0.76-1.46); Thyroid Stim Hormone (TSH) 0.65 uIU/mL (0.358-3.74)
[2021-05-28 08:10] LABS: Endomysial Antibody IgA Negative (Negative)
[2021-05-28 13:18] LABS: Immunoglobulin A 158 mg/dL (87-352); t-Transglutaminase IgA <2 U/mL (0-3)
== END ==
PROVIDERS: PCP Nurse Practitioner Family; Visit Provider Internal Medicine Endocrinology, Diabetes & Metabolism
DX: R19.7 Diarrhea, unspecified (principal); E03.8 Other specified hypothyroidism; E06.3 Autoimmune thyroiditis
CPT/HCPCS: 36415; 82784; 83516; 84439; 84443; 86255

== ENCOUNTER 2021-08-01 13:28 | Outpatient (CLI) | payer BC, SELFPAY ==
[2021-08-01 15:24] LABS: Absolute Lymphocyte Count 3.28 X10^3/uL (0.83-4.51); Absolute Neutrophil Count 4.9 X10^3/uL (2.0-7.7); Basophil# 0.05 X10^3/uL; Basophil% 0.5 % (0-1); Eosinophil# 0.32 X10^3/uL; Eosinophils% 3.5 % (0-5); Hematocrit 44.6 % (37-47); Hemoglobin 15.6 g/dL (12.0-15.0); Lymphocyte # 3.28 X10^3/ul (0.83-4.51); Mean Corpuscular Hgb 30.4 pg (27.0-32.0); Mean Corpuscular Volume 86.8 fL (81-99); Mean Platelet Vol. 10.2 fl (6.2-12.0); Monocyte# 0.51 X10^3/uL; Monocyte% 5.6 % (0-10); NRBC Flagged by Analyzer 0 % (0-5); Neutrophil # 4.93 X10^3/uL (2.7-7.7); Neutrophil % 54.1 % (47-70); Platelet Count 268 K/mm3 (150-450); RBC Distribution Width CV 11.4 % (11.6-14.6); RBC Distribution Width SD 36.1 fl (35.1-43.9); Red Blood Count 5.14 M/mm3 (4.2-5.4); White Blood Count 9.1 K/mm3 (4.4-11.0)
[2021-08-01 15:36] LABS: Vitamin B12 564 pg/mL (211-911); Vitamin D,25 Hydroxy 80.4 ng/mL
[2021-08-01 15:54] LABS: ALB/GLOB Ratio 0.8 RATIO (0.9-2.4); AST(SGOT) 25 U/L (15-37); Alanine Aminotransfer ALT/SGPT 28 U/L (13-56); Albumin, Serum 3.3 g/dL (3.2-5.0); Alkaline Phosphatase 104 U/L (45-117); Anion Gap 5 (5-15); BUN 10 mg/dL (7-18); BUN/Creat Ratio 12.1 RATIO (10-20); Calcium,Total 9.3 mg/dL (8.5-10.1); Chloride 104 mmol/L (98-107); Cholesterol 157 mg/dL (200); Creatinine, Serum 0.83 mg/dL (0.55-1.02); EST Glomerular Filtration Rate 83 mL/min (>60); Est Glom Filt Rate - Afr Amer 101 mL/min (>60); Ferritin 61 ng/mL (8-252); Globulin 4.3 g/dL (2.2-4.2); Glucose 64 mg/dL (74-106); High Density Lipoprotein 68 mg/dL; Potassium 4.5 mmol/L (3.5-5.1); Protein, Total 7.6 g/dL (6.4-8.2); Sodium Level 136 mmol/L (136-145); T4 Free Direct 1.39 ng/dL (0.76-1.46); Thyroid Stim Hormone (TSH) 0.21 uIU/mL (0.358-3.74); Triglycerides 82 mg/dL; Very Low Density Lipoprotein 16 mg/dL (5-40)
== END 2021-08-01 23:59 | disposition home or self-care (01) ==
LOC: BIMLAB 13:28
PROVIDERS: PCP Nurse Practitioner Family; Referring Provider Internal Medicine Endocrinology, Diabetes & Metabolism; Visit Provider Internal Medicine Endocrinology, Diabetes & Metabolism
DX: E10.9 Type 1 diabetes mellitus without complications (principal); E03.8 Other specified hypothyroidism; E06.3 Autoimmune thyroiditis; R53.81 Other malaise; R53.83 Other fatigue; E55.9 Vitamin D deficiency, unspecified
CPT/HCPCS: 36415; 80053; 80061; 82306; 82607; 82728; 84439; 84443; 85025

== ENCOUNTER → 2022-01-30 | Outpatient (CLI) | payer BC, SELFPAY ==
[2022-01-30 15:31] LABS: ALB/GLOB Ratio 0.8 RATIO (0.9-2.4); AST(SGOT) 23 U/L (15-37); Alanine Aminotransfer ALT/SGPT 23 U/L (13-56); Albumin, Serum 3.2 g/dL (3.2-5.0); Alkaline Phosphatase 101 U/L (45-117); Anion Gap 6 (5-15); BUN 12 mg/dL (7-18); BUN/Creat Ratio 13.1 RATIO (10-20); Calcium,Total 9.4 mg/dL (8.5-10.1); Chloride 106 mmol/L (98-107); Creatinine, Serum 0.92 mg/dL (0.55-1.02); EST Glomerular Filtration Rate 74 mL/min (>60); Est Glom Filt Rate - Afr Amer 89 mL/min (>60); Glucose 115 mg/dL (74-106); Protein, Total 7.2 g/dL (6.4-8.2); Sodium Level 141 mmol/L (136-145); T4 Free Direct 1.21 ng/dL (0.76-1.46); Thyroid Stim Hormone (TSH) 0.37 uIU/mL (0.358-3.74)
== END | disposition home or self-care (01) ==
LOC: BIMLAB 13:50
PROVIDERS: PCP Nurse Practitioner Family; Referring Provider Internal Medicine Endocrinology, Diabetes & Metabolism; Visit Provider Internal Medicine Endocrinology, Diabetes & Metabolism
DX: E10.9 Type 1 diabetes mellitus without complications (principal); E03.8 Other specified hypothyroidism; E06.3 Autoimmune thyroiditis; E55.9 Vitamin D deficiency, unspecified; Z96.41 Presence of insulin pump (external) (internal)
CPT/HCPCS: 36415; 80053; 82306; 84439; 84443

== ENCOUNTER → 2022-04-29 | Outpatient (CLI) | payer BC, SELFPAY ==
[2022-05-07 12:03] LABS: HPV APTIMA, High Risk Negative (Negative)
== END | disposition home or self-care (01) ==
LOC: LABSPEC 11:37
PROVIDERS: Visit Provider Student in an Organized Health Care Education/Training Program
DX: Z12.4 Encounter for screening for malignant neoplasm of cervix (principal)
CPT/HCPCS: 87624; 88175; G0145

== ENCOUNTER → 2022-07-29 | Outpatient (CLI) | payer BC, SELFPAY ==
[2022-07-29 12:51] LABS: AST(SGOT) 24 U/L (15-37); Alanine Aminotransfer ALT/SGPT 21 U/L (13-56); Albumin, Serum 3.4 g/dL (3.2-5.0); Alkaline Phosphatase 95 U/L (45-117); Anion Gap 6 (5-15); BUN 10 mg/dL (7-18); BUN/Creat Ratio 11.5 RATIO (10-20); Calcium,Total 8.9 mg/dL (8.5-10.1); Chloride 105 mmol/L (98-107); Cholesterol 168 mg/dL (200); Creatinine, Serum 0.87 mg/dL (0.55-1.02); EST Glomerular Filtration Rate 78 mL/min (>60); Est Glom Filt Rate - Afr Amer 94 mL/min (>60); Globulin 3.5 g/dL (2.2-4.2); Glucose 124 mg/dL (74-106); High Density Lipoprotein 70 mg/dL; Potassium 4.4 mmol/L (3.5-5.1); Protein, Total 6.9 g/dL (6.4-8.2); Sodium Level 139 mmol/L (136-145); T4 Free Direct 1.23 ng/dL (0.76-1.46); Thyroid Stim Hormone (TSH) 0.47 uIU/mL (0.358-3.74); Triglycerides 65 mg/dL; Very Low Density Lipoprotein 13 mg/dL (5-40)
[2022-07-29 12:59] LABS: Microalbumin,Random Urine < 5.0 mg/L (NO RANGE EST.)
== END | disposition home or self-care (01) ==
LOC: BIMLAB 10:37
PROVIDERS: Referring Provider Internal Medicine Endocrinology, Diabetes & Metabolism; Visit Provider Internal Medicine Endocrinology, Diabetes & Metabolism
DX: E10.9 Type 1 diabetes mellitus without complications (principal); E03.8 Other specified hypothyroidism; E06.3 Autoimmune thyroiditis
CPT/HCPCS: 36415; 80053; 80061; 82043; 82570; 84439; 84443

== ENCOUNTER → 2023-06-11 | Outpatient (CLI) | payer BC, SELFPAY ==
[2023-06-11 15:32] LABS: AST(SGOT) 24 U/L (15-37); Alanine Aminotransfer ALT/SGPT 24 U/L (13-56); Albumin, Serum 3.6 g/dL (3.2-5.0); Alkaline Phosphatase 120 U/L (45-117); Anion Gap 6 (5-15); BUN 9 mg/dL (7-18); BUN/Creat Ratio 9.8 RATIO (10-20); Calcium,Total 9.7 mg/dL (8.5-10.1); Chloride 103 mmol/L (98-107); Cholesterol 222 mg/dL (200); Creatinine, Serum 0.92 mg/dL (0.55-1.02); EST Glomerular Filtration Rate 73 mL/min (>60); Est Glom Filt Rate - Afr Amer 88 mL/min (>60); Globulin 3.7 g/dL (2.2-4.2); Glucose 207 mg/dL (74-106); High Density Lipoprotein 67 mg/dL; Potassium 4.4 mmol/L (3.5-5.1); Protein, Total 7.3 g/dL (6.4-8.2); Sodium Level 139 mmol/L (136-145); T4 Free Direct 1.16 ng/dL (0.76-1.46); Thyroid Stim Hormone (TSH) 0.47 uIU/mL (0.358-3.74); Triglycerides 131 mg/dL; Very Low Density Lipoprotein 26 mg/dL (5-40)
[2023-06-11 15:59] LABS: Microalbumin,Random Urine < 5.0 mg/L (NO RANGE EST.)
== END | disposition home or self-care (01) ==
LOC: BIMLAB 13:03
PROVIDERS: Referring Provider Internal Medicine Endocrinology, Diabetes & Metabolism; Visit Provider Internal Medicine Endocrinology, Diabetes & Metabolism
DX: E10.9 Type 1 diabetes mellitus without complications (principal); E03.8 Other specified hypothyroidism; E06.3 Autoimmune thyroiditis; Z96.41 Presence of insulin pump (external) (internal)
CPT/HCPCS: 36415; 80053; 80061; 82043; 82570; 84439; 84443

== ENCOUNTER → 2023-07-14 | Outpatient (CLI) | payer BC, SELFPAY ==
--- NOTE | 2023-07-14 15:48 | RAD_ITS ---
STUDY: X-RAY - PELVIS AND RIGHT HIP REASON FOR EXAM: Female, 38 years old. RIGHT HIP PAIN TECHNIQUE: 3 views of the pelvis and hip. COMPARISON: None. FINDINGS: There is a non-specific bowel gas pattern. Soft tissue density noted within the pelvis most likely distended bladder. Normal bilateral iliac wings, sacroiliac joints and visualized sacrum. Normal bilateral superior and inferior pubic rami. Normal pubic symphysis. Normal bilateral ischial tuberosities. No definitive evidence for acute hip fracture. Joint space is well-maintained. RAD/HIP, UNI W/ Pelvis 2-3 Views IMPRESSION: No evidence for acute right hip or pelvic fracture. Electronically Signed: Jose Ramirez MD at 16:08 EST ,
== END | disposition home or self-care (01) ==
PROVIDERS: Referring Provider Internal Medicine Rheumatology; Visit Provider Internal Medicine Rheumatology
DX: M25.551 Pain in right hip (principal)
CPT/HCPCS: 73502

== ENCOUNTER → 2023-08-25 | Outpatient (CLI) | payer BC, SELFPAY ==
--- NOTE | 2023-08-25 12:08 | RAD_ITS ---
STUDY: X-RAY - LEFT HAND, ATTENTION THUMB FINGER REASON FOR EXAM: Female, 38 years old. LEFT THUMB PAIN TECHNIQUE: 3 views of the left thumb were obtained. COMPARISON: None. FINDINGS: Normal first metacarpal. Normal metacarpophalangeal joint of the thumb. Normal proximal and distal phalanges of the thumb. Normal interphalangeal joint of the thumb. There is no demonstrated fracture. RAD/Finger(s) Min 2 Views IMPRESSION: Normal x-ray examination of the left thumb. Electronically Signed: Doc Barrientos MD at 11:45 EDT ,
[2023-08-27 17:07] LABS: Anti-Cardiolipin Ab, IgG, Qn < 9 GPL U/mL (0-14); Anti-Cardiolipin Ab, IgM, Qn < 9 MPL U/mL (0-12); Beta-2-Glycoprotein I IgA <9 (0-25); Beta-2-Glycoprotein I IgG <9 (0-20); Beta-2-Glycoprotein I IgM 9 (0-32); Dilute Prothrombin Time (dPT) 39.9 sec (0.0-47.6); Interpretation Comment: (.); PTT-LA 30.4 sec (0.0-43.5); Thrombin Time 17.4 sec (0.0-23.0)
== END | disposition home or self-care (01) ==
LOC: LAB 11:51
PROVIDERS: Referring Provider Internal Medicine Rheumatology; Visit Provider Internal Medicine Rheumatology
DX: M79.645 Pain in left finger(s) (principal); D68.61 Antiphospholipid syndrome
CPT/HCPCS: 36415; 73140; 86146; 86147; J7030; J7040; A4216

== ENCOUNTER → 2023-09-18 | Outpatient (CLI) | payer BC, SELFPAY ==
--- NOTE | 2023-09-18 15:16 | BI_ITS ---
MAMMOGRAPHY - BILATERAL SCREENING REASON FOR EXAM: Female, 38 years old. Routine annual screening examination. PERTINENT HISTORY: Non-contributory. TECHNIQUE: Digital bilateral breast carla (3D mammographic acquisition) in the CC and MLO projections. 2-D mediolateral oblique (MLO) and craniocaudad (CC) views of both breasts were obtained. CAD: Full Field Digital Mammography with Computer Added Detection was performed. COMPARISON: None. Baseline examination. FINDINGS: Breast Composition: There are scattered areas of fibroglandular density. There are no dominant masses or suspicious calcifications. No other significant abnormalities are identified. BI/SCRN MAMM (CAD)W/CARLA BILAT IMPRESSION: Negative screening mammogram. Yearly followup mammogram recommended. (A) ASSESSMENT CATEGORY: BIRADS Category 1: Negative. A letter regarding these results will be sent to the patient by the facility within 30 days. Approximately 10% of breast cancers are not detected by mammography. A normal mammogram should not delay biopsy of a clinically suspicious abnormality. [id number] Electronically Signed: Kishor Marte MD at 8:12 EDT ,
== END | disposition home or self-care (01) ==
LOC: OPBI 15:15
PROVIDERS: PCP Nurse Practitioner Family; Referring Provider Nurse Practitioner Women's Health; Visit Provider Nurse Practitioner Women's Health
DX: Z12.31 Encounter for screening mammogram for malignant neoplasm of breast (principal)
CPT/HCPCS: 77063; 77067

== ENCOUNTER → 2024-01-19 | Outpatient (CLI) | payer BC, SELFPAY ==
[2024-01-19 12:52] LABS: Absolute Lymphocyte Count 2.03 X10^3/uL (0.83-4.51); Absolute Neutrophil Count 5.2 X10^3/uL (2.0-7.7); Basophil# 0.05 X10^3/uL; Basophil% 0.6 % (0-1); Eosinophil# 0.22 X10^3/uL; Eosinophils% 2.7 % (0-5); Hematocrit 43.4 % (37-47); Hemoglobin 14.6 g/dL (12.0-15.0); Lymphocyte # 2.03 X10^3/ul (0.83-4.51); Lymphocyte % 25.1 % (19-41); Mean Corp Hgb Conc 33.6 g/dL (32-36); Mean Corpuscular Hgb 30.5 pg (27.0-32.0); Mean Corpuscular Volume 90.8 fL (81-99); Mean Platelet Vol. 8.6 fl (6.2-12.0); Monocyte# 0.53 X10^3/uL; Monocyte% 6.6 % (0-10); NRBC Flagged by Analyzer 0 % (0-5); Neutrophil # 5.23 X10^3/uL (2.7-7.7); Neutrophil % 64.6 % (47-70); Platelet Count 252 K/mm3 (150-450); RBC Distribution Width CV 11.5 % (11.6-14.6); RBC Distribution Width SD 37.7 fl (35.1-43.9); Red Blood Count 4.78 M/mm3 (4.2-5.4); White Blood Count 8.1 K/mm3 (4.4-11.0)
[2024-01-19 13:30] LABS: Vitamin B12 446 pg/mL (211-911); Vitamin D,25 Hydroxy 42.8 ng/mL
[2024-01-19 13:50] LABS: ALB/GLOB Ratio 0.9 RATIO (0.9-2.4); AST(SGOT) 25 U/L (15-37); Alanine Aminotransfer ALT/SGPT 23 U/L (13-56); Albumin, Serum 3.2 g/dL (3.2-5.0); Alkaline Phosphatase 111 U/L (45-117); Anion Gap 6 (5-15); BUN 13 mg/dL (7-18); BUN/Creat Ratio 15.2 RATIO (10-20); Calcium,Total 8.8 mg/dL (8.5-10.1); Chloride 104 mmol/L (98-107); Creatinine, Serum 0.86 mg/dL (0.55-1.02); EST Glomerular Filtration Rate 79 mL/min (>60); Est Glom Filt Rate - Afr Amer 95 mL/min (>60); Ferritin 33 ng/mL (8-252); Globulin 3.7 g/dL (2.2-4.2); Glucose 190 mg/dL (74-106); Potassium 4.2 mmol/L (3.5-5.1); Protein, Total 6.9 g/dL (6.4-8.2); Sodium Level 138 mmol/L (136-145); T4 Free Direct 1.05 ng/dL (0.76-1.46); Thyroid Stim Hormone (TSH) 0.514 uIU/mL (0.358-3.740)
[2024-01-19 14:43] LABS: Microalbumin,Random Urine 7.3 mg/L (NO RANGE EST.); Microalbumin:Creatinine Ratio 32.7 mg/g CRE (<30 mg/g CRE)
== END | disposition home or self-care (01) ==
LOC: LAB 12:04
PROVIDERS: PCP Nurse Practitioner Family; Referring Provider Internal Medicine Endocrinology, Diabetes & Metabolism; Visit Provider Internal Medicine Endocrinology, Diabetes & Metabolism
DX: E10.9 Type 1 diabetes mellitus without complications (principal); E03.8 Other specified hypothyroidism; E06.3 Autoimmune thyroiditis; R53.81 Other malaise; R53.83 Other fatigue; E55.9 Vitamin D deficiency, unspecified
CPT/HCPCS: 36415; 80053; 82043; 82306; 82570; 82607; 82728; 84439; 84443; 85025

== ENCOUNTER → 2024-09-22 | Outpatient (CLI) | payer BC, SELFPAY ==
--- NOTE | 2024-09-22 15:00 | BI_ITS ---
EXAM: SCRN MAMM (CAD)W/CARLA BILAT DATE: 09/22/2024 CLINICAL HISTORY: F, Age 39 y/o , SCREENING FOR BREAST CANCER No family history. BREAST CANCER RISK ASSESSMENT: Not assessed. TECHNIQUE: Bilateral screening digital breast tomosynthesis with 2D and 3D images. Computer aided detection. COMPARISON: Prior exam(s) dated September 18, 2023. FINDINGS: TISSUE DENSITY: The breast tissue is composed of scattered area of fibroglandular density. Bilateral Breast Mammographic Findings: No significant masses, calcifications or other abnormalities are identified. No suspicious masses, areas of developing architectural distortion, or suspicious calcifications. There has been no significant interval change. BI/SCRN MAMM (CAD)W/CARLA BILAT IMPRESSION: Right Breast: BIRADS 1 NEGATIVE. Left Breast: BIRADS 1 NEGATIVE. OVERALL FINAL ASSESSMENT: BIRADS 1 NEGATIVE RECOMMENDATION: Routine annual follow-up in 1 Year A letter with findings and recommendations will be mailed to the patient. Reading Location: [facility]
== END | disposition home or self-care (01) ==
PROVIDERS: PCP Nurse Practitioner Family; Referring Provider Nurse Practitioner Women's Health; Visit Provider Nurse Practitioner Women's Health
DX: Z12.31 Encounter for screening mammogram for malignant neoplasm of breast (principal); Z80.3 Family history of malignant neoplasm of breast
CPT/HCPCS: 77063; 77067

== ENCOUNTER → 2025-02-02 | Outpatient (CLI) | payer BC, SELFPAY ==
[2025-02-02 12:54] LABS: AST(SGOT) 20 U/L (<=31); Alanine Aminotransfer ALT/SGPT 10 U/L (<=34); Albumin, Serum 4.1 g/dL (3.5-5.0); Alkaline Phosphatase 106 U/L (35-104); Anion Gap 9 (5-15); BUN 9 mg/dL (4-19); BUN/Creat Ratio 11.0 RATIO (10-20); Calcium,Total 9.5 mg/dL (7.6-11.0); Carbon Dioxide 26.7 mmol/L (21.0-32.0); Chloride 103 mmol/L (98-108); Cholesterol 155 mg/dL (<=200); Globulin 3.0 g/dL (2.2-4.2); Glucose 105 mg/dL (70-99); Low Density Lipoprotein Calc. 83 mg/dL; Potassium 4.6 mmol/L (3.3-5.1); Triglycerides 53 mg/dL; Very Low Density Lipoprotein 11 mg/dL (5-40); cholesterol:hdl ratio screen 2.51
[2025-02-02 14:21] LABS: Creatinine, Urine (random) 60.50 mg/dL (28.00-217.00); Microalbumin,Random Urine < 12.0 mg/L (<20 mg/L)
== END | disposition home or self-care (01) ==
LOC: LAB 11:26
PROVIDERS: PCP Nurse Practitioner Family; Referring Provider Internal Medicine Endocrinology, Diabetes & Metabolism; Visit Provider Internal Medicine Endocrinology, Diabetes & Metabolism
DX: E10.29 Type 1 diabetes mellitus with other diabetic kidney complication (principal); R80.9 Proteinuria, unspecified; E03.8 Other specified hypothyroidism; E06.3 Autoimmune thyroiditis; Z96.41 Presence of insulin pump (external) (internal)
CPT/HCPCS: 36415; 80053; 80061; 82043; 82570; 84443